=== PATIENT | female | born 2000 | race Caucasian/White ===

== ENCOUNTER 2023-08-14 17:48 | Emergency (ER) | payer BC, SELFPAY ==
--- NOTE | ~2023-08-14 | CT_ITS ---
EXAMINATION: CT abdomen pelvis w con DATE: 08/14/2023 23:38 INDICATION: epigastric/ruq pain, N/V/D TECHNIQUE: Computed tomography (CT) of the abdomen and pelvis was performed with 100 mL Omnipaque-350 intravenous contrast. Automated exposure control and iterative reconstruction technique were employe d. The dose-length product was 222.34 mGy-cm. COMPARISON: None. FINDINGS: Lower thorax: Unremarkable Liver: Normal. Biliary/Gallbladder: Gallbladder is normal. No bile duct dilation. Pancreas: Suggestion of mild thickening of the pancreatic tail. Spleen: Normal. Adrenals:No mass. Kidneys: No suspicious mass, obstructing stone, or hydronephrosis. GI tract: No mild distal esophageal and gastric wall edema small or large bowel dilation. Appendix no t confidently visualized. Mesentery/Peritoneum: No ascites, mass, or free air. Retroperitoneum: No mass. Pelvis: Pelvic organs are within normal limits. Soft Tissues: Soft tissues and body wall unremarkable. Bones: No acute osseous finding. IMPRESSION: Mild esophagitis/gastritis. Suggestion of mild thickening of the pancreatic tail, may be normal for this patient or represent richy ma from pancreatitis. Correlate with pancreatic labs. Reviewed, dictated and finalized at location K. IMPRESSION: Mild esophagitis/gastritis. Suggestion of mild thickening of the pancreatic tail, may be normal for this pa tient or represent edema from pancreatitis. Correlate with pancreatic labs.
[2023-08-14 18:01] VITALS: BP 104/62; PULSE 125; RESP 20; TEMP 36.6; O2SAT 100
[2023-08-14 21:41] VITALS: BP 114/72; PULSE 107; RESP 16; O2SAT 99
[2023-08-14 21:44] LABS: Hematocrit 44.8 % (37.0-47.0); Hemoglobin 15.4 g/dL (12.0-15.0); Mean Corpuscular HGB Conc 34.4 g/dl (32-36); Mean Corpuscular Hemoglobin 31.5 pg (26-34); Mean Corpuscular Volume 91.6 fl (80-100); Mean Platelet Volume 10.9 fl (7.4-10.4); Platelet Count Result 214 k/mm3 (150-375); Red Blood Count 4.89 M/mm3 (4.2-5.4); Red Cell Distribution Width 13.2 % (11.5-14.5); White Blood Count 10.1 K/mm3 (4.5-10.0)
[2023-08-14 21:52] LABS: Appearance Urine Clear (Clear); Bacteria Urine None Seen /hpf; Bilirubin Urine Negative (Negative); Blood Urine Negative (Negative); Color Urine Yellow (Yellow); Glucose Urine UA Negative (Negative); Ketones Urine 2+ mg/dL (Negative); Leukocyte Esterase Ur Trace LEU/UL (Negative); Nitrate Urine Negative (Negative); Non Pathogenic Casts 0-2; Protein Urine Negative (Negative); RBC Urine 0-2 /hpf (0-2); Specific Grav Ur 1.028 (1.001-1.035); Squamous Epithelial Cell Urine None Seen /hpf (Few); Urobilinogen Urine 0.2 mg/dL (<2.0); WBC Urine 0-5 /hpf (0-3)
[2023-08-14 22:02] LABS: Pregnancy On Board Control Positive; Urine Pregnancy Test Negative
[2023-08-14 22:05] LABS: Band Neutrophils Percent 8 % (0-6); Lymphocytes Percent Manual 1 % (18-44); Monocytes Percent Manual 2 % (3-9); Neutrophils Absolute Manual 9.79 K/mm3 (1.7-7.2); Neutrophils Percent Manual 89 % (46-73); Total Cells Counted 100
[2023-08-14 22:06] LABS: Platelet Estimate Adequate (Adequate); Schistocytes None Seen
[2023-08-14 22:08] LABS: Alanine Aminotransferase 18 U/L (6-35); Albumin Level 4.4 g/dL (3.5-5.1); Alkaline Phosphatase 75 U/L (38-126); Anion Gap 12 mmol/L (4-12); Aspartate Amino Transferase 22 U/L (14-36); Bilirubin,Total 1.1 mg/dL (0.2-1.3); Blood Urea Nitrogen 14 mg/dL (7-17); Calcium 9.6 mg/dL (8.4-10.2); Carbon Dioxide 17 mmol/L (22-30); Chloride 109 mmol/L (98-107); Estimated CRCL calculation 101 ml/min; Estimated Glomerular Filt Rate > 60; Glucose 126 mg/dL (65-110); Lipase 20 U/L (23-300); Potassium 3.5 mmol/L (3.4-5.0); Sodium 138 mmol/L (137-145)
[2023-08-14 22:19] LABS: Add Urine Microscopic? YES
[2023-08-14] MEDS: SODIUM CHLORIDE 0.9% IV 1,000 ML 999 ML IV CONT ×2 (23:17→23:18)
[2023-08-14] MEDS: FAMOTIDINE 20 MG/2 ML VIAL IV PUSH (23:18)
[2023-08-14] MEDS: MORPHINE SULFATE (*CRX) 4 MG/ML INJ IV PUSH (23:18)
[2023-08-14] MEDS: ONDANSETRON INJ 4 MG/2 ML VIAL IV PUSH (23:19)
--- NOTE | 2023-08-14 23:36 | ED.ABDPAIN ---
HPI - Abdominal Pain General Chief Complaint: Abdominal Pain Stated Complaint: Abdominal pain Time Seen by Provider: 08/14/23 22:15 Source: patient Mode of arrival: ambulatory Limitations: no limitations History of Present Illness HPI narrative: Patient is a 23-year-old female who presents the ED with report of abdominal pain. Patient reports she has had diffuse abdominal pain over the last few days, pain became more localized to epigastric region last night into today. Pain has been constant and worsening. She reports persistent nausea and vomiting today, unable to keep down any food or drink, unable to take anything for pain. Does also report diarrhea, chills, subjective fevers today. Denies rectal bleeding or melena. States she has long history of IBS type symptoms, typically occurs with traveling/eating different foods. She is currently visiting family here from [place]. Related Data Allergies Allergy/AdvReac Type Severity Reaction Status Date / Time No Known Allergies Allergy Verified 08/14/23 18:04 Review of Systems Review of Systems: CONSTITUTIONAL: Denies fever, chills, or sweats. CARDIOVASCULAR: Denies chest pain. RESPIRATORY: Denies dyspnea. GASTROINTESTINAL: See HPI. GENITOURINARY: Denies dysuria or hematuria. All systems reviewed & are unremarkable except as noted in HPI and below Exam Narrative: GENERAL: Well appearing, thin, non-toxic, in no acute distress. HEAD: Normocephalic, atraumatic. RESPIRATORY: Airway patent, respirations nonlabored. Clear to auscultation bilaterally, no rales, rhonchi, wheezing. CARDIOVASCULAR: Borderline tachycardic with regular rhythm without murmurs, rubs, or gallops. ABDOMINAL: Soft, mild tenderness in right upper quadrant and epigastric region, nondistended. Normoactive BS. MUSCULOSKELETAL: Moves all extremities. No gross deformities. SKIN: Warm, dry, normal color. NEURO: A&O X3. Speech clear. Cranial nerves II-XII grossly intact. Steady gait. No ataxic movements. PSYCHIATRIC: Appropriate mood and affect. Normal interaction. Course Vital Signs Vital signs: Vital Signs Temperature 97.8 F 08/14/23 18:01 Pulse Rate 125 H 08/14/23 18:01 Respiratory Rate 20 08/14/23 18:01 Blood Pressure 104/62 08/14/23 18:01 Pulse Oximetry 100 08/14/23 18:01 Oxygen Delivery Room Air 08/14/23 18:01 Temperature 97.8 F 08/14/23 18:01 Pulse Rate 107 H 08/14/23 21:41 Respiratory Rate 16 08/14/23 21:41 Blood Pressure 114/72 08/14/23 21:41 Pulse Oximetry 99 08/14/23 21:41 Oxygen Delivery Room Air 08/14/23 18:01 MDM - Abdominal Pain MDM Narrative Medical decision making narrative: Patient presented to ED with upper abdominal pain, nausea, vomiting, diarrhea. Patient mildly tachycardic upon arrival. Fluids initiated. Afebrile. In no acute distress. CBC with white blood cell count of 10.1. 89% neutrophils, 8% bands. May be in part reactive from vomiting. CMP with bicarb low at 17. No anion gap. Fluids ongoing. Stable kidney function. Stable electrolytes. Normal LFTs and lipase. Urine with 2+ ketones, no evidence for infection. Urine negative. CT scan of abdomen pelvis was obtained and showing findings of esophagitis status gastritis. Shows possible inflammation of the pancreatic tail, though lipase is within normal limits. Low suspicion for acute pancreatitis. No risk factors for pancreatitis. Discussed lab and imaging findings with patient. She is feeling much better with supportive therapy. Resting comfortably on re-evaluation. Gastritis fit with clinical picture. Will treat as such with omeprazole, Zofran for further nausea. Advised patient to follow a bland diet, avoid greasy/spicy foods, ibuprofen, recommended close follow-up with PCP for further evaluation. Patient given return precautions. She agrees with plan and feels comfortable discharge home. Discharged in stable condition. Medical Records Attestat
[2023-08-15 01:45] VITALS: BP 108/68; PULSE 98; RESP 18; O2SAT 98
== END 2023-08-15 01:47 | disposition home or self-care (01) ==
PROVIDERS: Emergency Medicine; Emergency Provider Physician Assistant
DX: K29.00 Acute gastritis without bleeding (principal); R11.2 Nausea with vomiting, unspecified; R93.89 Abnormal findings on diagnostic imaging of other specified body structures
CPT/HCPCS: 36415; 74177; 80053; 81001; 81025; 83690; 85025; 96361; 96374; 96375; 99284; J2270; J2405; J7030; Q9967